=== PATIENT | female | born 1935 | race Caucasian/White ===

== ENCOUNTER 2023-06-23 14:41 | Outpatient (AMB) | payer MEDICARE, SELFPAY ==
--- NOTE | 2023-06-23 14:42 | A.OFFVIS_ITS ---
Intake Vital Signs 06/23/23 14:43 Height 5 ft 2 in Weight 154 lb 5.177 oz BMI 28.2 BP 132/72 Blood Pressure Location Rt brachial Position Sitting Pulse 91 Pulse Source Doppler Pulse Oximetry (%) 95 Oxygen Delivery Method Room Air Intake Visit Reasons: Pulmonary nodule Allergies Penicillins Allergy (Severe, Verified 06/23/23 14:49) Unknown HPI Pulmonary nodule HPI Details 88-year-old lady, lifetime nonsmoker, re ferred for evaluation of multiple 3 mm and under bilateral pulmonary nodules incidentally noted initially on x-ray obtained for workup of cough that has resolved since, further confirmed on CT chest from February of 2023 at [facility].. Patient denies any pulmonary concerns complaints at this time. She denies family history of lung disease. [facility] Medical History (Updated 06/23/23 @ 13:17 by Mary Agustin PA-C) Hyperlipidemia Osteopenia History of rib fracture Depression Insomnia Hearing loss Surgical History (Updated 06/23/23 @ 13:17 by Mary Agustin PA-C) History of cataract surgery History of hysterectomy (~1971) History of lumbar laminectomy (~2004) Review of Systems Const Denies daytime sleepiness, Denies excessive sweating, Denies fatigue, Denies fever(s), Denies lethargy, Denies malaise, Denies night sweats, Denies snoring and Denies weight loss Eyes Denies blurry vision and Denies itchy eyes ENT Denies nasal congestion, Denies post nasal drip, Denies sinus pain, Denies sinus pressure and Denies other ( Thrush) Card Denies chest pain, Denies pedal edema, Denies dyspnea, Denies orthopnea and Denies paroxysmal nocturnal dyspnea Resp Denies cough, Denies hemoptysis, Denies excessive phlegm production, Denies dyspnea, Denies snoring and Denies wheezing GI Denies abdominal pain and Denies heartburn Musc Denies myalgias, Denies arthralgias and Denies joint swelling Skin/Breast Denies rash Neuro Denies memory loss and Denies seizure-like activity Psych Denies abnormal sleep pattern, Denies anxiety and Denies memory loss Endo Denies excessive sweating, Denies fatigue and Denies heat intolerance Chriss/Lymph Denies easy bruising Aller/Immun Denies itchy eyes, Denies seasonal rhinorrhea and Denies wheezing Physical Exam Vital Signs: Last Vital Signs Pulse 91 10/27/23 14:43 BP 132/72 06/23/23 14:43 Pulse Ox 95 06/23/23 14:43 Oxygen Delivery Method Room Air 06/23/23 14:43 BMI result Body Mass Index 28.2 Const General: no acute distress and alert Nutritional Appearance: not obese Orientation/consciousness: Other orientation findings ( oriented) HEENT Head: Yes atraumatic Eyes General: appearance normal, both eyes and all related structures Sclerae: sclerae normal EOM: EOMs intact bilaterally Neck Neck: Yes supple Lymphatic: no lymphadenopathy noted Resp Effort & Inspection: normal respiratory effort and no use of accessory muscles Auscultation: clear to auscultation bilaterally Cardio Rate: regular rate Rhythm: regular rhythm Heart sounds: no gallops, no murmurs and no rubs Skin General skin exam: other ( warm) Extrem General: No clubbing, No cyanosis and No edema Assessment & Plan Assessment & Plan (1) Pulmonary nodules: Comment: (2 mm QUIQUE, 2mm QUIQUE, 2mm RML, 2mm RUL nodule noted on 03/22/[address]) Code(s): R91.8 - Other nonspecific abnormal finding of lung field Plan: Multiple bilateral pulmonary nodules in low risk patient. Will repeat CT chest February of 2024, if stable at that time, then no further imaging follow-up would be necessary. Orders: Orders CT chest wo IV con 03/03/24 R91.8 - Other nonspecific abnormal finding of lung field Coding Level of Care Code New Pt Level 3 (95377) Diagnoses Pulmonary nodules R91.8
[2023-06-23 14:43] VITALS: BP 132/72; PULSE 91; O2SAT 95; BMI 28.2
== END 2023-06-23 15:07 | disposition home or self-care (01) ==
PROVIDERS: PCP Physician Assistant Medical; Referring Provider Internal Medicine; Visit Provider Internal Medicine Pulmonary Disease
DX: R91.8 Other nonspecific abnormal finding of lung field (principal)
CPT/HCPCS: 99203

== ENCOUNTER → 2023-06-23 14:41 | Outpatient (BNVA) | payer MEDICARE, SELFPAY | PROVIDERS: PCP Physician Assistant Medical; Referring Provider Internal Medicine; Visit Provider Internal Medicine Pulmonary Disease ==

== ENCOUNTER 2024-02-02 10:13 | Outpatient (AMB) | payer MEDICARE, SELFPAY ==
[2024-02-02 10:17] VITALS: BP 122/67; PULSE 95; O2SAT 95; BMI 27.6
--- NOTE | 2024-02-02 10:17 | A.OFFVIS_ITS ---
Vital Signs 02/02/24 10:17 Height 5 ft 2 in Weight 151 lb 0.266 oz BMI 27.6 BP 122/67 Blood Pressure Location Rt brachial Position Sitting Pulse 95 Pulse Source Doppler Pulse Oximetry (%) 95 Oxygen Delivery Method Room Air Intake Visit Reasons: Severe cough Allergies Penicillins Allergy (Severe, Verified 06/23/23 14:49) Unknown HPI HPI Severe cough: Details: 88-year-old lady, lifetime nonsmoker, initially referred for evaluation of multiple 3 mm and under bilateral pulmonary nodules incidentally noted initially on x-ray obtained for workup of cough. Her follow-up CT chest is pending for February of 2024. Today patient is presenting for sick visit complaining of 3 months history of nonproductive cough. She has been treated empirically by her PCP office with Sharon and Jyothi with no changes in her symptoms. Patient denies changes in cough through the day, after eating, or with changing of body position. Patient does have prior history of seasonal allergies. [facility], [facility] Medical History (Updated 02/02/24 @ 10:44 by Armin Fuller MD) Hyperlipidemia Osteopenia History of rib fracture Depression Insomnia Hearing loss Surgical History (Updated 06/23/23 @ 13:17 by Mary Agustin PA-C) History of cataract surgery History of hysterectomy (~1971) History of lumbar laminectomy (~2004) Review of Systems Const Denies daytime sleepiness, Denies excessive sweating, Denies fatigue, Denies fever(s), Denies lethargy, Denies malaise, Denies night sweats, Denies snoring and Denies weight loss Eyes Denies blurry vision and Denies itchy eyes ENT Denies nasal congestion, Denies post nasal drip, Denies sinus pain, Denies sinus pressure and Denies other ( Thrush) Card Denies chest pain, Denies pedal edema, Denies dyspnea, Denies orthopnea and Denies paroxysmal nocturnal dyspnea Resp Reports cough, Denies hemoptysis, Denies excessive phlegm production, Denies dyspnea, Denies snoring and Denies wheezing GI Denies abdominal pain and Denies heartburn Musc Denies myalgias, Denies arthralgias and Denies joint swelling Skin/Breast Denies rash Neuro Denies memory loss and Denies seizure-like activity Psych Denies abnormal sleep pattern, Denies anxiety and Denies memory loss Endo Denies excessive sweating, Denies fatigue and Denies heat intolerance Chriss/Lymph Denies easy bruising Aller/Immun Denies itchy eyes, Denies seasonal rhinorrhea and Denies wheezing Physical Exam Vital Signs: Last Vital Signs Pulse 95 02/02/24 10:17 BP 122/67 02/02/24 10:17 Pulse Ox 95 02/02/24 10:17 Oxygen Delivery Method Room Air 02/02/24 10:17 BMI result Body Mass Index 27.6 Const General: no acute distress and alert Nutritional Appearance: not obese Orientation/consciousness: Other orientation findings ( oriented) HEENT Head: Yes atraumatic Eyes General: appearance normal, both eyes and all related structures Sclerae: sclerae normal EOM: EOMs intact bilaterally Neck Neck: Yes supple Lymphatic: no lymphadenopathy noted Resp Effort & Inspection: normal respiratory effort and no use of accessory muscles Auscultation: clear to auscultation bilaterally Cardio Rate: regular rate Rhythm: regular rhythm Heart sounds: no gallops, no murmurs and no rubs Skin General skin exam: other ( warm) Extrem General: No clubbing, No cyanosis and No edema Assessment & Plan Assessment & Plan (1) Cough: Code(s): R05.9 - Cough, unspecified Category: Medical Plan: chronic cough over 3 months with suboptimal response to inhaled corticosteroid and Singulair. Will treat with a course of prednisone azithromycin. Start codeine syrup for symptomatic relief. (2) Pulmonary nodules: Comment: (2 mm QUIQUE, 2mm QUIQUE, 2mm RML, 2mm RUL nodule noted on 03/22/[address]) Code(s): R91.8 - Other nonspecific abnormal finding of lung field Category: Medical Plan: Follow-up CT chest is pending for February of 2024. Medications: New codeine-guaifenesin 10-100 mg/5 mL 10 mL PO Q4-6H PRN 473 mL 0RF cough azithromycin For 250 mg dose pack: take 500 mg today (day 1), then 250 mg for 4 days (days 2-5) PO 6 tabs 0RF prednisone 40 mg (2 x 20 mg) PO DAILY 10 tabs 0RF Coding Level of Care Code Est Pt Level 4 (63020) Diagnoses Cough R05.9 Pulmonary nodules R91.8
== END 2024-02-02 10:59 | disposition home or self-care (01) ==
PROVIDERS: PCP Physician Assistant Medical; Visit Provider Internal Medicine Pulmonary Disease
DX: R05.9 Cough, unspecified (principal); R91.8 Other nonspecific abnormal finding of lung field
CPT/HCPCS: 99214

== ENCOUNTER → 2024-02-02 10:13 | Outpatient (BNVA) | payer MEDICARE, SELFPAY | PROVIDERS: PCP Physician Assistant Medical; Visit Provider Internal Medicine Pulmonary Disease | DX: R91.8 Other nonspecific abnormal finding of lung field (principal); R05.9 Cough, unspecified | CPT/HCPCS: 99212 ==